=== PATIENT | female | born 1995 | race Caucasian/White ===

== ENCOUNTER 2017-07-01 10:00 | Emergency (ER) | payer SELFPAY ==
[~2017-07-01] VITALS: Ht 165.1 cm; Wt 45.5 kg
[2017-07-01 12:15] VITALS: BP 126/63
== END 2017-07-01 12:16 | disposition home or self-care (01) ==
LOC: EMS 10:04
DX: F19.90 Other psychoactive substance use, unspecified, uncomplicated (principal); F41.9 Anxiety disorder, unspecified; B00.9 Herpesviral infection, unspecified; F17.210 Nicotine dependence, cigarettes, uncomplicated; Z91.040 Latex allergy status
CPT/HCPCS: 99283; 99406